=== PATIENT | male | born 1975 | race Hispanic/Latino ===

== ENCOUNTER 2017-04-10 23:54 | Emergency (ER) | payer OTHER ==
[2017-04-11 00:12] VITALS: BP 140/92; PULSE 76; RESP 22; TEMP 98.6; O2SAT 100
[2017-04-11] MEDS ORDERED: Albuterol-Ipratrop 3 mg / 0.5 (3 ml) UD INH STA (00:45)
--- NOTE | 2017-04-11 01:23 | ED PDOC ---
HPI: Chest Pain Chief Complaint (Provider): Anxiety attack Additional History Per: Patient <Stuart Field - Last Filed: 04/11/17 05:52> <Az Gee - Last Filed: 04/12/17 11:25> Time Seen by Provider: 04/10/17 23:55 Chief Complaint (Nursing): Chest Pain Additional Complaint(s): This is 42 y/o male with no PMH comes to the ED c/o 3 hours history of SOB, b/l Chest pain, Dizziness, shaking, sweating, parasthesia and restlessness. As per patient it started 3 hours ago all the sudden, denies any history of anxiety or previous symptoms like this. Patient admits feeling anxious recently due to his job issues. Denies any urinary symptoms, abdominal pain. (Stuart Field) Past Medical History - Medical History PMH: Denies: Asthma, HTN - Surgical History Surgical History: No Surg Hx - Family History Family History: States: Unknown Family Hx - Social History Current smoker - smoking cessation education provided: No Ex-Smoker (has not smoked in the last 12 months): No Alcohol: None Drugs: Denies <Stuart Field - Last Filed: 04/11/17 05:52> <Az Gee - Last Filed: 04/12/17 11:25> Vital Signs: Last Vital Signs Temp 98.6 F 04/11/17 00:10 Pulse 76 04/11/17 00:10 Resp 22 04/11/17 01:46 BP 140/92 H 04/11/17 00:10 Pulse Ox 100 04/11/17 05:52 - Home Medications Home Medications: Ambulatory Orders Medication Instructions Recorded No Known Home Med 11/10/15 - Allergies Allergies/Adverse Reactions: Allergies Allergy/AdvReac Type Severity Reaction Status Date / Time No Known Allergies Allergy Verified 04/11/17 00:09 SREE Risk Score for UA/NSTEMI - SREE Risk Score Age > 64: NO 3 or more CAD Risk Factors: NO Known CAD (Stenosis greater than 50%): NO Aspirin use in past 7 days: NO Severe Angina: NO EKG ST changes greater than 0.5mm: NO Positive Cardiac Marker: NO SREE Score: 0 Risk %: 5% <Stuart Field - Last Filed: 04/11/17 05:52> Curb-65 Severity Score - CURB-65 Severity Score Confusion: No Bun >19mg/dl (>7mmol/L): No Respiratory Rate greater than/equal to 30: No Systolic BP <90 or Diastolic BP less than/equal 60mmHg: No Age >64: No Curb-65 Score: 0 Percentage 30-day mortality: 0.6% <Stuart Field - Last Filed: 04/11/17 05:52> Wells Criteria for PE - Wells Criteria for Pulmonary Embolism Clinical Signs and Symptoms of DVT: No P.E is #1 Diagnosis, or Equally Likely: No Heart Rate >100: No Immobilization at least 3 days;Surgery previous 4 weeks: No Previous, objectively diagnosed PE or DVT: No Hemoptysis: No Malignancy w/treatment within 6 months, or palliative: No Total Score: 0 <Stuart Field - Last Filed: 04/11/17 05:52> Review of Systems Constitutional: Negative for: Fever, Chills Eyes: Negative for: Pain ENT: Negative for: Ear Pain Cardiovascular: Positive for: Chest Pain, Palpitations Respiratory: Positive for: Shortness of Breath. Negative for: Cough, Hemoptysis Genitourinary Male: Negative for: Dysuria Musculoskeletal: Negative for: Neck Pain Skin: Negative for: Rash Neurological: Positive for: Weakness, Numbness. Negative for: Confusion Psych: Positive for: Anxiety <Stuart Field - Last Filed: 04/11/17 05:52> Physical Exam - Reviewed Nursing Documentation Reviewed: Yes Vital Signs Reviewed: Yes - Physical Exam Appears: Positive for: In Acute Distress Head Exam: Positive for: ATRAUMATIC, NORMAL INSPECTION Skin: Positive for: Normal Color, Warm, Dry Eye Exam: Positive for: Normal appearance ENT: Positive for: Normal ENT Inspection Neck: Positive for: Normal Cardiovascular/Chest: Positive for: Regular Rate, Rhythm, Chest Non Tender Respiratory: Positive for: Normal Breath Sounds. Negative for: Rales, Wheezing Gastrointestinal/Abdominal: Positive for: Normal Exam, Bowel Sounds, Soft. Negative for: Tenderness Back: Positive for: Normal Inspection Extremity: Positive for: Normal ROM Neurologic/Psych: Positive for: Alert, Oriented. Negative for: Motor/Sensory Deficits <Stuart Field - Last Filed: 04/11/17 05:52> - Laboratory Results Result Diagrams: 04/11/17 01:24 04/11/17 01:24 - ECG O2 Sat by Pulse Oximetry: 100 - Progress Re-evaluation Time: 05:30 Condition: Improved <Stuart Field - Last Filed: 04/11/17 05:52> - Laboratory Results Result Diagrams: 04/11/17 01:24 04/11/17 01:24 <Az Gee - Last Filed: 04/12/17 11:25> - Progress ED Course And Treament: 42 y/o male with Anxiety - Duonab - CBC, CMP, Troponin, D-dimer - CXR - EKG (Normal sinus rhythm) - Serial reevaluation Case discussed with Dr. Gee - Patient started vomiting - Zofran 4mg IV ordered - 1 L fluid ordered Labs reviewed D-dimer elevated - CT angio PE ordered - Xanax 0.[address], CXR negative for any acute changes All the labs reviewed with patient Patient feels much better and agrees with discharge plan (Stuart Field) Medical Decision Making <Stuart Field - Last Filed: 04/11/17 05:52> <Az Gee - Last Filed: 04/12/17 11:25> Medical Decision Making: Anxiety Attack (Stuart Field) pt denies SI or HI (Az Gee) Disposition - Disposition Disposition: Routine/Home Disposition Time: 05:51 <Stuart Field - Last Filed: 04/11/17 05:52> <Az Gee - Last Filed: 04/12/17 11:25> - Clinical Impression Clinical Impression: Atypical chest pain - Disposition Referrals: [facility] [Outside] [facility] [Outside] Condition: IMPROVED Additional Instructions: follow up with your primary doctor in 1-2 days return to the ED with any worsening or concerning symptoms. Instructions: Chest Pain (ED) Forms: [employer] ([employer])
[2017-04-11 01:28] LABS: BASO % 0.5 % (0.0-2.0); EOS # 0.1 K/uL (0.0-0.7); EOS % 1.4 % (0.0-4.0); HEMOGLOBIN 15.2 g/dL (12.0-18.0); LYMPH # 2.5 K/uL (1.0-4.3); MEAN CORPUSCULAR HEMOGLOBIN 29.4 pg (27.0-31.0); MEAN CORPUSCULAR HGB CONC 33.4 g/dL (33.0-37.0); MONO # 0.8 K/uL (0.0-0.8); MONO % 10.1 % (0.0-10.0); NEUT # 4.2 K/uL (1.8-7.0); NRBC % 0.1 % (0.0-0.0); RBC 5.17 Mil/uL (4.40-5.90); RED CELL DISTRIBUTION WIDTH 13.3 % (11.5-14.5); WHITE BLOOD COUNT 7.7 K/uL (4.8-10.8)
[2017-04-11 01:36] LABS: ALB/GLOB RATIO 1.5 (1.0-2.1); ALBUMIN 4.2 g/dL (3.5-5.0); ALT/SGPT 29 U/L (21-72); AST/SGOT 22 U/L (17-59); BLOOD UREA NITROGEN 18 mg/dl (9-20); CALCIUM 9.1 mg/dL (8.4-10.2); GFR AFRICAN-AMERICAN > 60; GFR NON-AFRICAN AMERICAN > 60
[2017-04-11] MEDS ORDERED: Sodium Chloride 0.9% 1,000 ML IV SCH (01:45)
[2017-04-11] MEDS: Sodium Chloride 0.9% 1,000 ML IV SCH ×2 (01:46→03:33)
[2017-04-11] MEDS ORDERED: Sodium Chloride 0.9% 50 ML IV ONE (03:07)
[2017-04-11] MEDS ORDERED: Iodixanol 320 MG/ML 100 ML BOTTLE IV ONE (03:08)
--- NOTE | 2017-04-11 04:08 | CT ---
EXAM: CT Angiography Chest With Intravenous Contrast CLINICAL HISTORY: 42 years old, male; Abnormal findings; Other: D-dimer; Additional info: Elevated d-dimer TECHNIQUE: Axial computed tomographic angiography images of the chest with intravenous contrast using pulmonary embolism protocol. All CT scans at this facility use one or more dose reduction techniques, viz.: automated exposure control; ma/kV adjustment per patient size (including targeted exams where dose is matched to indication; i.e. head); or iterative reconstruction technique. MIP reconstructed images were created and reviewed. Coronal and sagittal reformatted images were created and reviewed. CONTRAST: 95 mL of [id number] administered intravenously. COMPARISON: No relevant prior studies available. FINDINGS: Pulmonary arteries: No pulmonary embolism. Aorta: No aneurysm. No dissection. Lungs: No consolidation. Pleural space: No significant effusion. No pneumothorax. Heart: No cardiomegaly. No significant pericardial effusion. Bones/joints: No acute fracture. Soft tissues: Unremarkable. Lymph nodes: No pathologically enlarged lymph nodes. Liver: Mild periportal edema, nonspecific. Gallbladder and bile ducts: Calcified gallstone. IMPRESSION: 1. No CT evidence of pulmonary embolism. 2. Incidental/non-acute findings are described above.
--- NOTE | 2017-04-11 09:11 | RAD ---
HISTORY: SOB COMPARISON: Correlation made with concurrent CTA chest dated 04/11/2017 FINDINGS: LUNGS: No active pulmonary disease. PLEURA: No significant pleural effusion identified, no pneumothorax apparent. CARDIOVASCULAR: Normal. OSSEOUS STRUCTURES: No significant abnormalities. VISUALIZED UPPER ABDOMEN: Normal. OTHER FINDINGS: None. IMPRESSION: No active disease.
== END 2017-04-11 05:56 | disposition home or self-care (01) ==
LOC: H.ER 23:54
DX: R07.89 Other chest pain (principal); R79.1 Abnormal coagulation profile
CPT/HCPCS: 71045; 71275; 80053; 84484; 85025; 85378; 87804; 96374; 96375; 99284; J1885; J2405; J7040; Q9967